=== PATIENT | female | born 1955 | race Hispanic/Latino ===

== ENCOUNTER 2018-05-08 11:57 | Emergency (ER) | payer BC ==
[2018-05-08 12:19] VITALS: BP 131/78; PULSE 71; RESP 18; TEMP 99; O2SAT 95
--- NOTE | 2018-05-08 12:24 | C.PDOC ---
History Of Present Illness 62 year old female presents to the ED for evaluation of nausea and vomiting since this morning. Patient ate a tuna sandwich last night. He states the vomiting and abdominal discomfort has resolved. He denies fever, chills, diarrhea. Time Seen by Provider: 05/08/18 12:18 Chief Complaint (Nursing): Abdominal Pain History Per: Patient History/Exam Limitations: no limitations Onset/Duration Of Symptoms: Hrs Current Symptoms Are (Timing): Better Associated Symptoms: Nausea, Vomiting. denies: Fever, Chills, Diarrhea Additional History Per: Patient Abnormal Vaginal Bleeding: No Past Medical History Reviewed: Historical Data, Nursing Documentation, Vital Signs Vital Signs: Last Vital Signs Temp 99 F 05/08/18 12:09 Pulse 71 05/08/18 12:09 Resp 18 05/08/18 12:09 BP 131/78 05/08/18 12:09 Pulse Ox 95 05/08/18 12:09 - Medical History PMH: HTN Surgical History: No Surg Hx Family History: States: Unknown Family Hx - Social History Hx Alcohol Use: No Hx Substance Use: No - Immunization History Hx Tetanus Toxoid Vaccination: No Hx Influenza Vaccination: No Hx Pneumococcal Vaccination: No Review Of Systems Constitutional: Negative for: Fever, Chills Gastrointestinal: Positive for: Nausea, Vomiting. Negative for: Diarrhea Physical Exam - Physical Exam Appears: Non-toxic, No Acute Distress Skin: Normal Color, Warm, Dry Head: Atraumatic, Normacephalic Eye(s): bilateral: Normal Inspection Oral Mucosa: Moist Neck: Supple Chest: Symmetrical, No Deformity, No Tenderness Cardiovascular: Rhythm Regular, No Murmur Respiratory: Normal Breath Sounds, No Rales, No Rhonchi, No Wheezing Gastrointestinal/Abdominal: Soft, No Tenderness, No Guarding, No Rebound Extremity: Normal ROM, Capillary Refill (less than 2 seconds ) Neurological/Psych: Oriented x3, Normal Speech, Normal Cognition ED Course And Treatment O2 Sat by Pulse Oximetry: 95 (on RA) Pulse Ox Interpretation: Normal Progress Note: Zofran PO and Pepcid PO given. Medical Decision Making Medical Decision Making: food poisoned from tuna last night feels better belly benign amenable to PO routine Disposition Doctor Will See Patient In The: Office Counseled Patient/Family Regarding: Studies Performed, Diagnosis - Disposition Referrals: Radha Arteaga MD [Family Provider] - Disposition: HOME/ ROUTINE Disposition Time: 12:24 Condition: GOOD Additional Instructions: plenty of fluids BRAT diet: bananas, white rice, applesauce, toast Zofran ODT (for nausea/vomiting) 1 tab every 8 hours as needed Expect soft stools/diarrhea Follow-up with your PMD as needed. Prescriptions: Ondansetron ODT [Zofran ODT] 4 mg PO Q6H PRN #6 odt PRN Reason: Nausea/Vomiting Instructions: Food Poisoning, Nausea and Vomiting, Adult (DC) Forms: Accompanied To ED By:, [employer] (Khmer), Work Excuse - Clinical Impression Clinical Impression: Vomiting - Scribe Statement The provider has reviewed the documentation as recorded by the Scribe (Irlanda Mauricio) Provider Attestation: All medical record entries made by the Scribe were at my direction and personally dictated by me. I have reviewed the chart and agree that the record accurately reflects my personal performance of the history, physical exam, medical decision making, and the department course for this patient. I have also personally directed, reviewed, and agree with the discharge instructions and disposition.
== END 2018-05-08 12:40 | disposition home or self-care (01) ==
LOC: C.ER 11:57
DX: R11.2 Nausea with vomiting, unspecified (principal)